=== PATIENT | female | born 1955 | race Caucasian/White ===

== ENCOUNTER → 2018-06-22 | Outpatient (CLI) | payer MEDICARE, BC ==
[2018-06-22 13:58] VITALS: BP 124/78; PULSE 75; RESP 18; TEMP 98.2; BMI 24.9
--- NOTE | 2018-06-22 14:57 | P.HPOB ---
History of Present Illness H&P Date: 06/22/18 Chief Complaint: The patient is here for her routine gynecologic exam. This is a 63-year-old G to P1011 with an LMP of 2006. The patient is here to establish with this office. She is status post [facility] and BSO in 2008. This was done for some suspicious findings on an ultrasound, but was found to be benign. The patient/pelvic exam was about one year ago [place] She has recently moved back to this area. She denies hot flashes and has not used HRT. Review of Systems Weight has been stable. She denies respiratory, cardiac and G.I. problems. She has had some issues with constipation in the past. She denies maltreatment or problems with falling. : she denies any significant problems with urinary leakage. But occasionally has urinary urgency if she drinks too much pop. Past Medical History Past Medical History: GERD/Reflux, Thyroid Disorder Additional Past Medical History / Comment(s): Hypothyroidism, Eric's syndrome and osteopenia. Past LOSS PREVENTION ANALYST history: she had finding of some type of HPV on a Pap smear years ago. She has no other history of STDs. Pap smears have been normal since then. History of Any Multi-Drug Resistant Organisms: None Reported Past Surgical History: Hysterectomy Additional Past Surgical History / Comment(s): Bilateral Cataracts, Lipoma right groin, Left Breast Lumpectomy, [facility] BSO 2008. Colonoscopy 2013(3rd, every 5 yrs). Upper endoscopy in the past. Past Psychological History: No Psychological Hx Reported Smoking Status: Never smoker Past Alcohol Use History: Occasional (4 per week) Past Drug Use History: None Reported Additional History: The patient is and has not been sexually active. She is a psychiatric nurse. - Past Family History Father Family Medical History: Cancer Additional Family Medical History / Comment(s): Lung cancer and melanoma. Mother Family Medical History: Cancer Additional Family Medical History / Comment(s): Colon cancer and leukemia. Grandparents also had colon cancer. Sister(s) Additional Family Medical History / Comment(s): Bowel/GI cancer. Medications and Allergies Home Medications Medication Instructions Recorded Confirmed Type Calcium Carbonate [Calcium] 600 mg PO DAILY 06/22/18 06/22/18 History Cholecalciferol [Vitamin D3] 1,000 unit PO DAILY 06/22/18 06/22/18 History Estrogens, Conjugated Cream 1 gm VAGINAL DIRECTED 06/22/18 06/22/18 History [Premarin Cream] Levothyroxine Sodium 88 mcg PO DAILY 06/22/18 06/22/18 History Magnesium 200 mg PO DAILY 06/22/18 06/22/18 History Pantoprazole [Protonix] 0 mg DAILY 06/22/18 06/22/18 History Triamcinolone 0.1% Ointment 1 applic TOPICAL BID 06/22/18 06/22/18 History [Kenalog 0.1% Ointment] Allergies Allergy/AdvReac Type Severity Reaction Status Date / Time No Known Allergies Allergy Unverified 06/22/18 13:44 Exam Vital Signs Temp Pulse Resp BP Pulse Ox 06/22/18 13:49 98.2 F 75 18 124/78 100 Intake and Output 06/21/18 06/22/18 06/22/18 22:59 06:59 14:59 Other: Weight 72.121 kg Height 5'7", weight 159 pounds, BMI 24.9. This is a well-developed well-nourished white female who is alert and oriented times 3 in no acute distress. HEENT: Within normal limits. NECK: Supple without mass or thyromegaly. CHEST AND LUNGS: Clear to auscultation. HEART: Regular rate and rhythm. BREASTS: Are without mass or discharge. AXILLARY EXAM: Negative for adenopathy. BACK: Negative for CVA tenderness. ABDOMEN: Soft, nontender, without palpable masses. PELVIC EXAM: External genitalia appears normal with mild to moderate atrophy. There is no significant pallor or erythema. There are no focal lesions. Vagina appears normal with mild atrophy. There is no evidence of prolapse. Bimanual examination is negative for mass or tenderness. RECTAL EXAM: Rectovaginal exam is negative for mass or tenderness and is negative for occult blood. EXTREMITIES: Nontender. IMPRESSION: 1. 63-year-old menopausal female status post TLH and BSO for benign reasons. 2. Normal gynecologic exam. 3. History of intermittent vulvar pruritus and history of lichen sclerosis of the vulva apparently diagnosed with a biopsy per the patient. Minimal vulvar findings at this time. 4. History of osteopenia PLAN: 1. Pap smears have been discontinued. 2. Self breast awareness was discussed with the patient. 3. Screening mammogram is due and an order slip was given to the patient for this. 4. Osteoporosis prevention was discussed. I have stressed the importance of adequate calcium, vitamin D and regular exercise. Recommended amounts of calcium and vitamin D were also discussed. Bone density screening is recommended since it has been more than 3 years since her last one with a history of osteopenia. 5. She did receive a flu shot in the fall. 6. Prescriptions for Premarin vaginal cream, one tube, 1 g intravaginally twice weekly with 3 refills will be sent to [facility] pharmacy. Also prescription for triamcinolone ointment 0.1% BID PRN with refills. 7.She was advised to return in one year for her annual well woman exam.
--- NOTE | 2018-07-21 14:23 | P.PN ---
Progress Note - Text Progress Note Date: 07/21/18 Premarin vaginal cream is not covered on the patient's current insurance plan. A letter sent to me from [facility] pharmacy states that estradiol vaginal cream is a formulary alternative on her plan. I have discussed this with the patient. She states she has used the Premarin vaginal cream for 8 years without problems. The electronic prescription will be sent in for estradiol vaginal cream. She will call if she is having problems with this change. If this is the case, we can then consider appealing the coverage for the Premarin vaginal cream.
== END | disposition home or self-care (01) ==
LOC: WWCWWP 13:14
PROVIDERS: ATTEND Obstetrics & Gynecology
DX: Z53.9 Procedure and treatment not carried out, unspecified reason (principal)

== ENCOUNTER → 2018-07-20 | Outpatient (CLI) | payer MEDICARE, BC ==
--- NOTE | 2018-07-20 15:21 | BD ---
EXAMINATION TYPE: Axial Bone Density DATE OF EXAM: 07/20/2018 COMPARISON: NONE CLINICAL HISTORY: 63 YR OLD FEMALE....ICD-10 CODE: Z78.0 ASYMPTOMATIC MENOPAUSAL STATE Height: 65 Weight: 159 FRAX RISK QUESTIONS: NOTHING TO NOTE HERE RISK FACTORS HISTORY OF: NO FX AT 48 OR OLDER Family History of Osteoporosis: YES, SISTER, NO HIP FX Active: YES Postmenopausal woman: YES AT AGE 54 YRS OLD, NO HORMONES Lost more than 2 inches in height since high school: MEDICATIONS: Thyroid Medications: YES, GENERIC SYNTHROID, 20 + YRS Osteoporosis Medications: STOPPED 7 YRS AGO, ACTENOL Additional Medications: CALCIUM AND VIT D, PROTONIX, Additional History: HEARTBURN/REFLUX EXAM MEASUREMENTS: Bone mineral densitometry was performed using the Vector[employer] System. Bone mineral density as measured about the Lumbar spine is: ----- L1-L4(G/cm2): 1.356 T Score Values are as follows: ----- L1: -0.1 ----- L2: 0.2 ----- L3: 1.7 ----- L4: 3.3 ----- L1-L4: 1.5 Bone mineral density NEW TO [facility] Bone mineral density about the R hip (g/cm2): 0.773 Bone mineral density about the L hip (g/cm2): 0.851 T Score values are as follows: -----R Neck: -2.3 -----L Neck: -1.7 -----R Total: -1.9 -----L Total: -1.2 Bone mineral density NEW TO [facility] FRAX%s: THERE IS A 12.2% CHANCE FOR A MAJOR OSTEOPOROTIC FX AND A 2.3% FOR HIP.....PROBABILITY FO R FX IN 10 YRS TIME IMPRESSION: Osteopenia (T Score between -2.5 and -1). There is slightly increased risk of fracture and the patient may be considered for treatment. Re-Screen 2-5 years. NOTE: T-SCORE=SD OF THE YOUNG ADULT MEAN.
--- NOTE | 2018-07-21 10:41 | MM ---
Reason for exam: screening (asymptomatic). Last mammogram was performed 1 year and 4 months ago. History: Patient is postmenopausal and history of other cancer. Excisional biopsy of the left breast, 2011. Physical Findings: A clinical breast exam by your physician is recommended on an annual basis and results should be correlated with mammographic findings. MG 3D Screening Mammo W/Cad Bilateral CC and MLO view(s) were taken. Prior study comparison: March 11, 2017, mammogram. February 22, 2016, mammogram. The breast tissue is heterogeneously dense. This may lower the sensitivity of mammography. No significant changes when compared with prior studies. ASSESSMENT: Benign, BI-RAD 2 RECOMMENDATION: Routine screening mammogram of both breasts in 1 year.
--- NOTE | 2018-07-21 11:33 | P.PN ---
Progress Note - Text Progress Note Date: 07/21/18 OUTPATIENT FOLLOW-UP NOTE TEST(S)/RESULTS: bone density from 07/20/2018 shows osteopenia. METHOD OF NOTIFICATION: patient was notified by phone. PATIENT COMMENTS: the patient states she has had osteopenia on previous bone density testing and had used Actonel for about 6 years. She has been off of this for about 8 years. DIAGNOSIS: osteopenia status post 6 years of Actonel use. DISCUSSION: I have stressed the importance of getting adequate calcium, vitamin D, and regular exercise. She will remain off of medication for osteopenia. PLAN: repeat bone density testing in 3 years.She was advised to return in one year for her annual well woman exam.
== END | disposition home or self-care (01) ==
LOC: RADMAMWWP 13:59
PROVIDERS: ATTEND Obstetrics & Gynecology
DX: Z12.31 Encounter for screening mammogram for malignant neoplasm of breast (principal); M85.851 Other specified disorders of bone density and structure, right thigh; M85.852 Other specified disorders of bone density and structure, left thigh; Z78.0 Asymptomatic menopausal state
CPT/HCPCS: 77063; 77067; 77080

== ENCOUNTER 2019-02-25 08:51 | Day surgery (SDC) | payer MEDICARE, BC ==
[2019-02-17 13:57] VITALS: BMI 24.3
[~2019-02-25 08:51] MED LIST: LACTATED RINGERS 1,000 ML IV SCH; LIDOCAINE 1% 20 ML VIAL (10MG/ML) FOR IV START INTRADERMA PRN
[2019-02-25 09:13] VITALS: RESP 16; TEMP 98.2
[2019-02-25] MEDS ORDERED: PROPOFOL 10 MG/ML 20 ML VIAL IV ONE (10:22)
--- NOTE | 2019-02-25 11:17 | P.PCN ---
Date of Procedure: 02/25/19 Procedure(s) Performed: BRIEF HISTORY: Patient is a 64-year-old pleasant female scheduled for an elective colonoscopy as a part of screening for colon rectal neoplasia. She has family history of colon cancer diagnosed in her mother and both grand mothers in the 50s and 60s. PROCEDURE PERFORMED: Colonoscopy with snare polypectomy. PREOPERATIVE DIAGNOSIS: Screening for colon cancer and family history of colon cancer. IV sedation per Anesthesia. PROCEDURE: After informed consent was obtained, the patient, was brought into the endoscopy unit. IV sedation was administered by Anesthesia under continuous monitoring. Digital rectal examination was normal. Initially the Olympus CF-160 flexible video colonoscope was then inserted in the rectum, gradually advanced into the cecum without any difficulty. Careful examination was performed as the scope was gradually being withdrawn. Ileocecal valve and the appendiceal orifice were visualized and appeared normal. Prep was excellent. Mucosa of the cecum, appeared normal. In the ascending colon there was a 5-6 mm polyp that was snare polypectomy. Rest of the ascending colon, transverse colon, descending colon, appeared normal. In the sigmoid colon there was a 1 cm polyp removed by snare polypectomy. Rest of the sigmoid colon, and rectum appeared normal. There was mild erythema noted in the distal rectum consistent with rectal prolapse and biopsies were done from this area to rule out proctitis. Retroflexion was performed in the rectum and no lesions were seen. The patient tolerated the procedure well. IMPRESSION: 5 mm ascending colon polyp status post polypectomy 1 cm sigmoid colon polyp status post polyp Mild patchy erythema of the distal rectum consistent with rectal prolapse status post biopsy RECOMMENDATIONS: Findings of this examination were discussed with the patient her family. She was advised to have a low with the biopsy results and based the biopsy results have a repeat screening colonoscopy in 3-5 years..
[2019-02-25 11:20] VITALS: BP 119/71; PULSE 77
== END 2019-02-25 11:32 | disposition home or self-care (01) ==
LOC: ORWHC2ENDO 08:51
PROVIDERS: ATTEND Internal Medicine Gastroenterology
DX: Z12.11 Encounter for screening for malignant neoplasm of colon (principal); D12.3 Benign neoplasm of transverse colon; D12.5 Benign neoplasm of sigmoid colon; K55.039 Acute (reversible) ischemia of large intestine, extent unspecified; Z80.0 Family history of malignant neoplasm of digestive organs; Z90.710 Acquired absence of both cervix and uterus; Z98.41 Cataract extraction status, right eye; Z98.42 Cataract extraction status, left eye; Z79.890 Hormone replacement therapy
CPT/HCPCS: 88305; 45380; 45385; J2704

== ENCOUNTER → 2019-12-16 | Outpatient (CLI) | payer MEDICARE, BC ==
--- NOTE | 2019-12-16 12:53 | US ---
EXAMINATION TYPE: US thyroid st tissue head/neck DATE OF EXAM: 12/16/2019 COMPARISON: NONE CLINICAL HISTORY: E04.1 thyroid nodule. On thyroid meds; hx of nodules GLAND SIZE: Right Lobe: 2.7 x 0.7 x 0.9 cm Overall Parenchyma: homogenous Left Lobe: 3.2 x 1.1 x 1.2 cm Overall Parenchyma: heterogeneous Isthmus Thickness: 0.2 cm NODULES RIGHT: # of nodules measured on right: 0 LEFT: # of nodules measured on left: 0 ISTHMUS: # of nodules measured in the isthmus: 0 Bilateral neck scanned, no evidence of lymphadenopathy. IMPRESSION: Normal thyroid scan
== END | disposition home or self-care (01) ==
LOC: RADUSWWP 12:06
PROVIDERS: ATTEND Otolaryngology
DX: E04.1 Nontoxic single thyroid nodule (principal)
CPT/HCPCS: 76536

== ENCOUNTER → 2019-12-23 | Outpatient (CLI) | payer MEDICARE, BC ==
[2019-12-23 15:52] VITALS: BMI 23.8
== END | disposition home or self-care (01) ==
LOC: DBWHC3 08:52
PROVIDERS: ATTEND Family Medicine
DX: R73.03 Prediabetes (principal)
CPT/HCPCS: 97802

== ENCOUNTER → 2020-02-08 | Outpatient (CLI) | payer MEDICARE, BC ==
--- NOTE | 2020-02-08 13:54 | BD ---
EXAMINATION TYPE: Axial Bone Density DATE OF EXAM: 02/08/2020 COMPARISON: 07.20.2018 CLINICAL HISTORY: 64 YR OLD FEMALE.....ICD-10 CODE: M81.0 OSTEOPOROSIS Height: 65 Weight: 148 FRAX RISK QUESTIONS: Family History (Parent hip fracture): SISTER BUT NO FX RISK FACTORS HISTORY OF: Family History of Osteoporosis: YES, SISTER NO HIP FX Active: YES Postmenopausal woman: YES, AT ABOUT 53 YRS OLD Lost more than 2 inches in height since high school: YES Hyperparathyroidism: NO Adrenal Insufficiency: NO MEDICATIONS: Thyroid Medications: YES SYNTHROID GENERIC, FOR ABOUT 40 YRS Osteoporosis Medications: STOPPED 8 YRS AGO Additional Medications: REFLUX MEDS, VIT D AND CALCIUM Additional History: SLIGHT REFLUX, EXAM MEASUREMENTS: Bone mineral densitometry was performed using the Check System. Bone mineral density as measured about the Lumbar spine is: ----- L1-L4(G/cm2): 1.415 T Score Values are as follows: ----- L1: 0.2 ----- L2: 0.3 ----- L3: 2.6 ----- L4: 4.4 ----- L1-L4: 2.0 Bone mineral density has: Increased 5.6% since study of: 07.20.2018 Bone mineral density about the R hip (g/cm2): 0.788 Bone mineral density about the L hip (g/cm2): 0.756 T Score values are as follows: -----R Neck: -2.2 -----L Neck: -2.1 -----R Total: -1.7 -----L Total: -2.0 Bone mineral density has: Decreased -4.9% since study of: 07.20.2018 FRAX%s: THERE IS A 12.4% CHANCE FOR A MAJOR OSTEOPOROTIC FX AND A 2.4% FOR HIP.....PROBABILITY FOR HIP FX IN 10 YRS TIME IMPRESSION: Osteopenia (T Score between -2.5 and -1). There is slightly increased risk of fracture and the patient may be considered for treatment. Re-Screen 2-5 years. NOTE: T-SCORE=SD OF THE YOUNG ADULT MEAN.
--- NOTE | 2020-02-09 11:17 | MM ---
Reason for exam: screening (asymptomatic). Last mammogram was performed 1 year and 7 months ago. History: Patient is postmenopausal and has history of other cancer at age 60. Excisional biopsy of the left breast, 2011. Physical Findings: A clinical breast exam by your physician is recommended on an annual basis and results should be correlated with mammographic findings. MG 3D Screening Mammo W/Cad Bilateral CC and MLO view(s) were taken. Prior study comparison: July 20, 2018, bilateral MG 3d screening mammo w/cad. March 11, 2017, mammogram. The breast tissue is heterogeneously dense. This may lower the sensitivity of mammography. There is no discrete abnormality. ASSESSMENT: Negative, BI-RAD 1 RECOMMENDATION: Routine screening mammogram of both breasts in 1 year.
== END | disposition home or self-care (01) ==
LOC: RADMAMWWP 06:58
PROVIDERS: ATTEND Family Medicine
DX: Z12.31 Encounter for screening mammogram for malignant neoplasm of breast (principal); M85.80 Other specified disorders of bone density and structure, unspecified site; M81.0 Age-related osteoporosis without current pathological fracture
CPT/HCPCS: 77063; 77067; 77080

== ENCOUNTER → 2021-02-19 | Outpatient (CLI) | payer MEDICARE, BC ==
--- NOTE | 2021-02-25 11:18 | MM ---
Reason for exam: screening (asymptomatic). Last mammogram was performed 1 year ago. History: Patient is postmenopausal and has history of other cancer at age 60. Excisional biopsy of the left breast, 2011. Physical Findings: A clinical breast exam by your physician is recommended on an annual basis and results should be correlated with mammographic findings. MG 3D Screening Mammo W/Cad Bilateral CC and MLO view(s) were taken. Prior study comparison: February 08, 2020, bilateral MG 3d screening mammo w/cad. July 20, 2018, bilateral MG 3d screening mammo w/cad. The breast tissue is heterogeneously dense. This may lower the sensitivity of mammography. No significant changes when compared with prior studies. ASSESSMENT: Negative, BI-RAD 1 RECOMMENDATION: Routine screening mammogram of both breasts in 1 year.
== END | disposition home or self-care (01) ==
LOC: RADMAMWWP 12:51
PROVIDERS: ATTEND Family Medicine
DX: Z12.31 Encounter for screening mammogram for malignant neoplasm of breast (principal); Z78.0 Asymptomatic menopausal state
CPT/HCPCS: 77063; 77067

== ENCOUNTER → 2021-11-30 | Outpatient (CLI) | payer MEDICARE, BC ==
[2021-11-30 16:35] LABS: LDL Cholesterol,Calculated 135.1 mg/dL (0.0-131.0); VLDL Calculation 12.98 mg/dL (5.00-40.00)
== END | disposition home or self-care (01) ==
LOC: LABWHC1 11:42
PROVIDERS: ATTEND Family Medicine
DX: E78.5 Hyperlipidemia, unspecified (principal)
CPT/HCPCS: 36415; 80061; 83036

== ENCOUNTER → 2022-01-14 | Outpatient (CLI) | payer MEDICARE, BC ==
--- NOTE | 2022-01-14 16:03 | XR ---
EXAMINATION TYPE: XR cervical spine comp DATE OF EXAM: 01/14/2022 TECHNIQUE: Frontal, lateral, oblique, and open mouth view of the cervical spine are obtained. HISTORY: M54.2 Cervicalgia COMPARISON: None FINDINGS: The cervical spine is visualized in its entirety from C1 thru the top of T1 level, there i s grade 1 retrolisthesis C4 on C5. The pre-vertebral soft tissue appears within normal limits. The C1-C2 articulation is within normal limits on the open mouth view. Vertebral body heights are maintai ceasar. Severe disc space narrowing and spurring C5-C6 level. Mild to moderate disc space narrowing C3-C 4 level. The oblique images show normal foraminal narrowing bilaterally C5-C6 and right C4-C5 level d ue to marginal spurring. Mild vascular calcification bilateral carotid bulb level is present. IMPRESSION: As above.
== END | disposition home or self-care (01) ==
LOC: RADXRMAIN 15:17
PROVIDERS: ATTEND Family Medicine
DX: M54.2 Cervicalgia (principal)
CPT/HCPCS: 72050

== ENCOUNTER → 2022-02-10 | Outpatient (CLI) | payer MEDICARE, BC ==
--- NOTE | 2022-02-10 14:07 | BD ---
EXAMINATION TYPE: Axial Bone Density DATE OF EXAM: 02/10/2022 COMPARISON: 02.08.2020 CLINICAL HISTORY: 66 years year old Female. 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 Height: 65 Weight: 147 FRAX RISK QUESTIONS: Family History (Parent hip fracture): NO FX RISK FACTORS HISTORY OF: Family History of Osteoporosis: YES, SISTER Postmenopausal woman: YES, AT 53 YRS OLD Take estrogen and/or progesterone medications: YES, HORMONE CREAM How long: SINCE AGE 53 PRN Lost more than 2 inches in height since high school: YES Hyperparathyroidism: NO Adrenal Insufficiency: NO MEDICATIONS: Thyroid Medications: YES, SYNTHROID PRODUCT FOR ABOUT 40 YRS Osteoporosis Medications: YES, ALTENOL IN THE PAST, NONE NOW Additional Medications: REFLUX MEDS, PRN, VIT D AND CALCIUM Additional History: THYROID, REFLUX, OSTEOARTHRITIS, EXAM MEASUREMENTS: Bone mineral densitometry was performed using the [employer]ilizer System. Bone mineral density as measured about the Lumbar spine is: ----- L1-L4(G/cm2): 1.215 T Score Values are as follows: ----- L1: 0.1 ----- L2: -0.9 ----- L3: -0.4 ----- L4: 2.3 ----- L1-L4: 0.3 Bone mineral density has: Decreased -14.1% since study of: 02.08.2020 Bone mineral density about the R hip (g/cm2): 0.735 Bone mineral density about the L hip (g/cm2): 0.764 T Score values are as follows: -----R Neck: -2.5 -----L Neck: -2.4 -----R Total: -2.2 -----L Total: -1.9 Bone mineral density has: Decreased -3.0% since study of: 02.08.2020 FRAX%s: The graph provided illustrates a 14.7% chance for a major osteoporotic fx and a 3.7% chance f or the hips probability for fx in 10 years time. IMPRESSION: Osteopenia (T Score between -2.5 and -1). There is slightly increased risk of fracture and the patient may be considered for treatment. Re-Screen 2-5 years. NOTE: T-SCORE=SD OF THE YOUNG ADULT MEAN.
== END | disposition home or self-care (01) ==
LOC: RADBDWWP 11:14
PROVIDERS: ATTEND Family Medicine
DX: M81.0 Age-related osteoporosis without current pathological fracture (principal); Z78.0 Asymptomatic menopausal state
CPT/HCPCS: 77080

== ENCOUNTER → 2022-02-24 | Outpatient (CLI) | payer MEDICARE, BC ==
--- NOTE | 2022-02-24 12:15 | MR ---
EXAMINATION TYPE: MR cervical spine wo con DATE OF EXAM: 02/24/2022 INDICATION: Patient age:Female; 67 years old; Reason for study: M54.2 CERVICALGIA; COMPARISON: Cervical radiograph 01/14/2022. TECHNIQUE: Multi planar, multi sequence imaging was performed utilizing: T1-weighted, T2-weighted, an d turbo inversion recovery imaging of the cervical spine. IV Contrast: None FINDINGS: Alignment: The cervical vertebral bodies have preserved heights. There is grade 2 anterolisthesis of C7 on T1. Bones: Bone signal is within normal limits. Multilevel degenerative disc disease is noted and most p ronounced at the C5-C6 and C7-T1. vertebral levels. Cord: The spinal cord is unremarkable with regards to their signal intensity and morphology. Discs: Scattered disc desiccation is present. C2-C3: No significant disc pathology. The spinal canal is patent. Bilateral facet and uncovertebral joint arthropathy are present with mild bilateral neural foraminal stenosis. C3-C4: A disc osteophyte complex is present which minimally narrows the ventral subarachnoid space. Bilateral facet and uncovertebral joint arthropathy are present with mild bilateral neural foraminal stenosis. C4-C5: A disc osteophyte complex is present which minimally narrows the ventral subarachnoid space. Bilateral facet and uncovertebral joint arthropathy are present with moderate to severe right and mi ld left neural foraminal stenosis. C5-C6: A disc osteophyte complex is present with mild spinal canal stenosis. Bilateral facet and unc overtebral joint arthropathy are present with moderate bilateral neural foraminal stenosis. C6-C7: No significant disc pathology. The spinal canal is patent. Bilateral facet and uncovertebral joint arthropathy are present with moderate right and mild left neural foraminal stenosis. C7-T1: No significant disc pathology. The spinal canal is patent. Grade 2 anterolisthesis with disc uncovering results in moderate spinal canal stenosis and severe bilateral neural foraminal stenosis. Other: None. IMPRESSION: C7-T1 grade 2 anterolisthesis with moderate spinal canal stenosis and severe bilateral neural foramin al stenosis. No evidence of myelomalacia.
== END | disposition home or self-care (01) ==
LOC: RADMRIMAIN 10:29
PROVIDERS: ATTEND Family Medicine
DX: M43.13 Spondylolisthesis, cervicothoracic region (principal); M47.812 Spondylosis without myelopathy or radiculopathy, cervical region; M99.72 Connective tissue and disc stenosis of intervertebral foramina of thoracic region; M48.03 Spinal stenosis, cervicothoracic region
CPT/HCPCS: 72141

== ENCOUNTER → 2022-03-04 | Outpatient (CLI) | payer MEDICARE, BC ==
--- NOTE | 2022-03-05 18:38 | MM ---
Reason for Exam: Screening (asymptomatic). Last mammogram was performed 1 year(s) and 1 month(s) ago. Patient History: Menarche at age 11. First Full-Term at age 26. Left ovary removed at age 54. Right ovary removed at age 54. Hysterectomy at age 54. Postmenopausal. Other cancer, age 60. 2012, Excisional Biopsy on the Left side. Paternal cousin had breast cancer at or over age 50. Risk Values: Ivania 5 year model risk: 2.3%. NCI Lifetime model risk: 6.9%. Prior Study Comparison: 07/20/2018 Bilateral Screening Mammogram, [facility]. 02/08/2020 Bilateral Screening Mammogram, [facility]. 02/19/2021 Bilateral Screening Mammogram, [facility]. Tissue Density: The breast tissue is heterogeneously dense. This may lower the sensitivity of mammography. Findings: Analyzed By CAD. Areas of asymmetric density are unchanged. There is no suspicious group of microcalcifications or new suspicious mass in either breast. Overall Assessment: Benign, BI-RAD 2 Management: Screening Mammogram of both breasts in 1 year. 1. Patient should continue monthly self breast exams. 2. A clinical breast exam by your physician is recommended on an annual basis. 3. This exam should not preclude additional follow-up of suspicious palpable abnormalities. Electronically signed and approved by: Marissa Levi M.D. Radiologist
== END | disposition home or self-care (01) ==
LOC: RADMAMWWP 15:01
PROVIDERS: ATTEND Family Medicine
DX: Z12.31 Encounter for screening mammogram for malignant neoplasm of breast (principal); Z80.3 Family history of malignant neoplasm of breast; Z78.0 Asymptomatic menopausal state; Z98.890 Other specified postprocedural states
CPT/HCPCS: 77063; 77067

== ENCOUNTER 2022-03-07 11:20 | Day surgery (SDC) | payer MEDICARE, BC ==
[~2022-03-07 11:20] MED LIST changes: -LACTATED RINGERS 1,000 ML IV SCH; +LIDOCAINE 1% (10MG/ML) FOR IV START INTRADERMA PRN; -LIDOCAINE 1% 20 ML VIAL (10MG/ML) FOR IV START INTRADERMA PRN
[2022-03-07] MEDS: LACTATED RINGERS 1,000 ML IV SCH ×2 (13:03→13:50)
[2022-03-07 13:06] VITALS: TEMP 98.3
[2022-03-07] MEDS ORDERED: PROPOFOL 10 MG/ML 20 ML VIAL IV ONE (13:51)
--- NOTE | 2022-03-07 14:20 | P.PCN ---
Date of Procedure: 03/07/22 Procedure(s) Performed: Brief history: Patient is a pleasant 67-year-old pleasant white female scheduled for an elective upper endoscopy as well as colonoscopy as a part of evaluation of GERD/epigastric pain and prior history of colon polyps. Procedure performed: Esophagogastroduodenoscopy with biopsy Colonoscopy Preoperative diagnosis: GERD/epigastric pain History of colon polyps Anesthesia: [facility] [place] Procedure: After informed consent was obtained from the patient was brought into the endoscopy unit and IV sedation was administered by anesthesia under continuous monitoring. Initially upper endoscopy was done. The Olympus GF 160 video endoscope was inserted inserted into the mouth and esophagus intubated without any difficulty and was gradually advanced into the stomach and duodenum and carefully examined. The bulb and second part of the duodenum appeared normal. The scope was then withdrawn into the stomach adequately insufflated with air and upon careful examination the antrum had mild gastritis and biopsies were done from this area. Mucosa of the body, cardia and fundus appeared normal. The scope was then withdrawn into the esophagus. The GE junction was located at 40 cm to the incisors. Small hiatal hernia noted. There was a 5 minute a polyp noted at the GE junction which was biopsied. It appeared regular with no erythema erosions or ulcerations. Rest of the esophagus appeared normal. Patient tolerated the procedure well. At this time the patient continued to remain sedation. Initial digital rectal examination was normal. Olympus CF 160 video colonoscope was then inserted into the rectum and gradually advanced to the cecum without any difficulty. Careful examination was performed as the scope was gradually being withdrawn. The prep was excellent. The cecum, ascending colon, transverse colon, descending colon, sigmoid colon and rectum appeared normal. The distal rectum there was mild erythema noted suspicious for rectal prolapse. Retroflexion was performed in the rectum and no lesions were noted. Patient tolerated the procedure well. Impression: 1. Upper endoscopy revealed small hiatal hernia, 5 mm GE junction polyp status post biopsy and mild antral gastritis 2. Colonoscopy revealed a distal rectal prolapse but no evidence of colorectal neoplasia Recommendations: Findings of this examination were discussed with the patient as well as her family. She was advised to follow with the biopsy results. She will continue with her current medications and follow antireflux measures. Recommend repeat colonoscopy in 5 years because of the prior history of colon polyps..
[2022-03-07 14:44] VITALS: RESP 18
[2022-03-07 15:47] VITALS: BP 138/78; PULSE 67
== END 2022-03-07 15:48 | disposition home or self-care (01) ==
LOC: ORWHC2ENDO 11:20
PROVIDERS: ATTEND Internal Medicine Gastroenterology
DX: K22.82 Esophagogastric junction polyp (principal); K44.9 Diaphragmatic hernia without obstruction or gangrene; Z12.11 Encounter for screening for malignant neoplasm of colon; Z86.010 Personal history of colon polyps; E03.9 Hypothyroidism, unspecified; Z79.891 Long term (current) use of opiate analgesic; Z79.899 Other long term (current) drug therapy; K62.3 Rectal prolapse; K21.9 Gastro-esophageal reflux disease without esophagitis; Z87.19 Personal history of other diseases of the digestive system; Z98.890 Other specified postprocedural states
CPT/HCPCS: 88305; 88342; 43239; J2704; G0105; 45378

== ENCOUNTER → 2023-05-07 | Outpatient (CLI) | payer MEDICARE, BC ==
--- NOTE | 2023-05-10 16:57 | MM ---
Reason for Exam: Screening (asymptomatic). Last mammogram was performed 1 year(s) and 2 month(s) ago. Patient History: Menarche at age 11. First Full-Term at age 26. Left ovary removed at age 54. Right ovary removed at age 54. Hysterectomy at age 54. Postmenopausal. 2012, Excisional Biopsy on the Left side. Paternal cousin had breast cancer at or over age 50. Risk Values: Ivania 5 year model risk: 2.3%. NCI Lifetime model risk: 6.6%. Prior Study Comparison: 02/08/2020 Bilateral Screening Mammogram, [facility]. 02/19/2021 Bilateral Screening Mammogram, [facility]. 03/04/2022 Bilateral MG 3D screening mammo w/cad, [facility]. Tissue Density: The breasts are heterogeneously dense, which may obscure small masses. Findings: Analyzed By CAD. Asymmetric density right MLO view at an anterior depth just below the retroareolar plane. This may represent superimposition shadow but is more defined and further evaluation is recommended. Otherwise, no significant change. Overall Assessment: Incomplete: need additional imaging evaluation, BI-RAD 0 Management: Special View Mammogram of the right breast. Additional views to include spot 3-D MLO and 3-D lateral views. Targeted right breast ultrasound of any persisting abnormality. [facility] will attempt to contact patient to return for supplemental views and ultrasound if indicated. Electronically signed and approved by: Marissa Levi M.D. Radiologist
== END | disposition home or self-care (01) ==
LOC: RADMAMWWP 12:57
PROVIDERS: ATTEND Family Medicine
DX: Z12.31 Encounter for screening mammogram for malignant neoplasm of breast (principal); Z78.0 Asymptomatic menopausal state; Z80.3 Family history of malignant neoplasm of breast; M85.80 Other specified disorders of bone density and structure, unspecified site
CPT/HCPCS: 77063; 77067

== ENCOUNTER → 2023-05-13 | Outpatient (CLI) | payer MEDICARE, BC ==
--- NOTE | 2023-05-13 08:56 | MM ---
Reason for Exam: Additional evaluation requested from abnormal screening. Last screening mammogram was performed less than 1 month ago. Patient History: Menarche at age 11. First Full-Term at age 26. Left ovary removed at age 54. Right ovary removed at age 54. Hysterectomy at age 54. Postmenopausal. 2012, Excisional Biopsy on the Left side. Paternal cousin had breast cancer at or over age 50. Risk Values: Ivania 5 year model risk: 2.3%. NCI Lifetime model risk: 6.6%. Tissue Density: Right: The breasts are heterogeneously dense, which may obscure small masses. Findings: Analyzed By CAD. While the question nodular asymmetric density located just below the retroareolar plane in the anterior right breast disperses, there is questionable persisting nodular asymmetry anterior depth just above the posterior nipple line in the area of dense tissue. Further ultrasound evaluation is recommended. Overall Assessment: Incomplete: need additional imaging evaluation, BI-RAD 0 Management: Diagnostic Breast Ultrasound of the right breast. Superior periareolar. Electronically signed and approved by: Marissa Lvei M.D. Radiologist
--- NOTE | 2023-05-13 09:18 | USB ---
Reason for Exam: Additional evaluation requested from abnormal screening. Patient History: Menarche at age 11. First Full-Term at age 26. Left ovary removed at age 54. Right ovary removed at age 54. Hysterectomy at age 54. Postmenopausal. 2012, Excisional Biopsy on the Left side. Paternal cousin had breast cancer at or over age 50. Risk Values: Ivania 5 year model risk: 2.3%. NCI Lifetime model risk: 6.6%. Technique: Method: Targeted. Prior Study Comparison: 02/19/2021 Bilateral Screening Mammogram, [facility]. 03/04/2022 Bilateral MG 3D screening mammo w/cad, [facility]. 05/07/2023 Bilateral MG 3D screening mammo w/cad, [facility]. Findings: The upper section of the breast of the right breast, the axilla of the right breast and the retroareolar of the right breast were scanned. Targeted ultrasound right breast 10:00 to 2:00 position including subareolar region and axilla. Dense tissue is present throughout. No solid or cystic lesion. Overall Assessment: Probably benign, BI-RAD 3 Management: Diagnostic Mammogram of the right breast in 6 months. Further clinical management of any suspicious palpable area. Patient should continue monthly self breast exams. Results were given to the patient verbally at the time of exam. Electronically signed and approved by: Marissa Levi M.D. Radiologist
== END | disposition home or self-care (01) ==
LOC: RADMAMWWP 08:29
PROVIDERS: ATTEND Family Medicine
DX: R92.331 Mammographic heterogeneous density, right breast (principal); Z80.3 Family history of malignant neoplasm of breast; Z78.0 Asymptomatic menopausal state
CPT/HCPCS: 77065; 76642; G0279; 77061

== ENCOUNTER → 2023-07-16 | Outpatient (CLI) | payer MEDICARE, BC ==
--- NOTE | 2023-07-16 12:45 | XR ---
EXAMINATION TYPE: XR chest 2V DATE OF EXAM: 07/16/2023 COMPARISON: None HISTORY: 68-year-old female with productive cough for months, J20.9 ACUTE BRONCHITIS, UNSPECIFIED TECHNIQUE: Frontal and lateral views FINDINGS: Heart normal size. Aorta and pulmonary vasculature are within normal limits. Eventration anterior rig ht hemidiaphragm. There is a calcified granuloma at the right upper lobe measuring 6 mm no consolidat ion or pleural effusion. IMPRESSION: Evidence of prior granulomatous disease. No definite acute process.
== END | disposition home or self-care (01) ==
LOC: RADXRMAIN 11:38
PROVIDERS: ATTEND Family Medicine
DX: J20.9 Acute bronchitis, unspecified (principal); R05.9 Cough, unspecified
CPT/HCPCS: 71046

== ENCOUNTER → 2024-02-26 | Outpatient (CLI) | payer MEDICARE, BC ==
--- NOTE | 2024-02-26 15:15 | BD ---
EXAMINATION TYPE: Axial Bone Density DATE OF EXAM: 02/26/2024 CLINICAL HISTORY: 69 years old Female. ICD-10 CODE: M85.80 osteopenia , Additional History: Height: 5 ft 4 1/4 in Weight: 154 FRAX RISK QUESTIONS: Alcohol (3 or more units per day): no Family History (Parent hip fracture): no Glucocorticoids (More than 3mos): no (Ex: prednisone, prednisolone, methylprednisolone, dexamethasone, and hydrocortisone). History of Fracture in Adulthood: yes Secondary Osteoporosis: 1. Type 1 Diabetes: no 2. Hyperthyroidism: no 3. Menopause before 45: no 4. Malnutrition: no 5. Chronic liver disease: no Rheumatoid Arthritis: no Current Tobacco Use: no RISK FACTORS HISTORY OF: Surgery to Spine/Hip(right/left)/Wrist (right/left): no MEDICATIONS: Thyroid Medications: yes Which medication: levothyroxine How Lon years Osteoporosis Medications: yes Which medication: prolia How Lon 1/2 year EXAM MEASUREMENTS: Bone mineral densitometry was performed using the [employer] System. Bone mineral density as measured about the Lumbar spine is: ----- L1-L4(G/cm2): 1.524 T Score Values are as follows: ----- L1: 0.1 ----- L2: 0.4 ----- L3: 3.2 ----- L4: 6.7 ----- L1-L4: 2.9 Z Score Values are as follows: ----- L1: 1.6 ----- L2: 2.0 ----- L3: 4.7 ----- L4: 8.2 ----- L1-L4: 4.4 Bone mineral density has: increased 25.4 % since study of: 2021 Bone mineral density about the R hip (g/cm2): 0.699 Bone mineral density about the L hip (g/cm2): 0.737 T Score values are as follows: -----R Neck: -2.4 -----L Neck: -2.2 -----R Total: -1.8 -----L Total: -1.5 Z Score values are as follows: -----R Neck: -0.8 -----L Neck: -0.5 -----R Total: -0.4 -----L Total: -0.1 Bone mineral density has: increased 6.7 % since study of: 2021 FRAX%s: The graph provided illustrates a 22.9 % chance for a major osteoporotic fx and a 5.8 % chance for the hips probability for fx in 10 years time. IMPRESSION: Osteopenia (T Score between -2.5 and -1). Note the measurements are bordering on osteopenia at the ri t hip. There is slightly increased risk of fracture and the patient may be considered for treatment. Re-Screen 2-5 years. NOTE: T-SCORE=SD OF THE YOUNG ADULT MEAN. [facility], , 02/26/2024 3:13 PM
== END | disposition home or self-care (01) ==
LOC: RADBDWWP 13:03
PROVIDERS: ATTEND Family Medicine
DX: M85.89 Other specified disorders of bone density and structure, multiple sites (principal); Z78.0 Asymptomatic menopausal state
CPT/HCPCS: 77080